=== PATIENT | male | born 1940 | race Caucasian/White ===

== ENCOUNTER 2024-04-18 11:35 | Day surgery (SDC) | payer MEDICARE, BC ==
[~2024-04-18] VITALS: Ht 177.8 cm; Wt 98.5 kg
[2024-04-18] VITALS (15 sets, daily range): BP systolic 106–171; BP diastolic 51–106; PULSE 32–63; RESP 7–18; TEMP 97.8; O2SAT 90–98
[~2024-04-18 11:35] MED LIST: APIX5TAB3 PO; ATOR40TA71 PO; DOCU-148 PO; FLO0.4C PO; PANT40TA54 PO; SENN-263 PO
[2024-04-18] MEDS ORDERED: ASPI-1264 PO (12:04)
[2024-04-18] MEDS ORDERED: DONE10TA44 PO (12:04)
[2024-04-18] MEDS ORDERED: TURM500C13 PO (12:04)
[2024-04-18 12:34] LABS: BASOPHILS % (AUTO) 0.6 % (0-1); EOSINOPHILS # (AUTO) 0.1 X10'3 (0-0.9); EOSINOPHILS % (AUTO) 1.4 % (0-6); HEMATOCRIT 42.1 % (42.0-52.0); HEMOGLOBIN 13.9 g/dl (14.0-17.9); LYMPHOCYTES % (AUTO) 15.6 % (21-51); MEAN CORPUSCULAR HEMOGLOBIN 32.1 PG (27.0-31.0); MEAN CORPUSCULAR VOLUME 97.1 FL (78-98); MEAN PLATELET VOLUME 8.3 FL (7.4-10.4); MONOCYTES # (AUTO) 0.4 X10'3 (0-0.9); MONOCYTES % (AUTO) 6.9 % (2-12); NEUTROPHILS # (AUTO) 4.9 X10'3 (1.8-7.7); NEUTROPHILS % (AUTO) 75.5 % (42-75); PLATELET COUNT 145 X10'3 (140-440); RED BLOOD COUNT 4.33 X10'6 (4.70-6.10); RED CELL DISTRIBUTION WIDTH 13.8 % (11.5-14.5); WHITE BLOOD COUNT 6.5 X10'3 (4.5-11.0)
[2024-04-18 12:57] LABS: PROTHROMBIN TIME 11.1 SECONDS (9.0-12.0)
[2024-04-18 13:08] LABS: ANION GAP 5 (8-16); BLOOD UREA NITROGEN 23 MG/DL (7-18); CHLORIDE 106 MMOL/L (99-107); CREATININE 1.27 MG/DL (0.60-1.10); GLUCOSE 92 MG/DL (70-104); POTASSIUM 4.4 MMOL/L (3.5-5.1); SODIUM 140 MMOL/L (135-145); TOTAL CARBON DIOXIDE 29.4 MMOL/L (24-32)
[2024-04-18 13:09] LABS: ALBUMIN 3.5 G/DL (3.4-5.0); BUN/CREATININE RATIO 18.1 (10.0-20.0); CALCIUM 9.3 MG/DL (8.5-10.1); CHOL/HDL RATIO 2.4 (0.00-4.99); CHOLESTEROL 117 MG/DL (0-200); HDL CHOLESTEROL 49 MG/DL (35-60); LDL CHOLESTEROL 62 MG/DL (50-100); TRIGLYCERIDES 57 MG/DL (20-135); eCRCL 46 ML/MIN; eGFR 54 ML/MIN
[2024-04-18] MEDS ORDERED: ASPI-1265 PO (13:57)
[2024-04-18] MEDS ORDERED: CLOP75TA33 PO (13:57)
[2024-04-18] MEDS ORDERED: CEPH-585 PO (13:57)
[2024-04-18] MEDS: ceFAZolin/D5W- 1GM premix 50 ML IV ONE (14:18)
[2024-04-18] MEDS: MIDAZolam 1mg/ml 10ml vial IV ONE (14:19)
[2024-04-18] MEDS: fentaNYL/PF 50MCG/1 ML 2ML syringe IV ONE (14:19)
== END 2024-04-18 15:30 | disposition home or self-care (01) ==
LOC: SSTAY O 11:35
PROVIDERS: ATTEND Student in an Organized Health Care Education/Training Program
DX: I48.0 Paroxysmal atrial fibrillation (principal); I10 Essential (primary) hypertension; E78.5 Hyperlipidemia, unspecified; G47.33 Obstructive sleep apnea (adult) (pediatric); Z86.73 Personal history of transient ischemic attack (TIA), and cerebral infarction without residual deficits; Z86.711 Personal history of pulmonary embolism; Z79.01 Long term (current) use of anticoagulants; Z79.899 Other long term (current) drug therapy; Z98.890 Other specified postprocedural states; Z83.3 Family history of diabetes mellitus
CPT/HCPCS: 36415; 80048; 80061; 85025; 85610; 93005; 93325; 94760; A4620; A6258; A6402; C8925; J0690; J2250; J3010; J7030; Z7610; 93312; A6449

== ENCOUNTER 2024-05-10 10:15 | Outpatient (CLI) | payer MEDICARE, BC ==
[~2024-05-10 10:15] MED LIST changes: -APIX5TAB3 PO; +ASPI-1264 PO; +ASPI-1265 PO; +DONE10TA44 PO; -SENN-263 PO; +TURM500C13 PO
[2024-05-10] MEDS ORDERED: iohexol 300mg/ml 100ml inj. ONE (11:10)
== END 2024-05-10 23:59 | disposition home or self-care (01) ==
LOC: RAD 10:15
PROVIDERS: ATTEND Urology
DX: N20.0 Calculus of kidney (principal); D49.512 Neoplasm of unspecified behavior of left kidney; I70.0 Atherosclerosis of aorta; I51.7 Cardiomegaly; I25.10 Atherosclerotic heart disease of native coronary artery without angina pectoris
CPT/HCPCS: 74178; Q9967

== ENCOUNTER 2024-06-07 09:12 | Outpatient (CLI) | payer MEDICARE, BC | END 2024-06-07 23:59 | disposition home or self-care (01) | LOC: RAD 09:12 | PROVIDERS: ATTEND Internal Medicine | DX: S09.90XA Unspecified injury of head, initial encounter (principal); X58.XXXA Exposure to other specified factors, initial encounter; Y93.89 Activity, other specified; Y92.89 Other specified places as the place of occurrence of the external cause; Y99.8 Other external cause status | CPT/HCPCS: 70450 ==